=== PATIENT | male | born 1975 | race Caucasian/White ===

== ENCOUNTER 2019-09-01 07:14 | Day surgery (SDC) | payer OTHER ==
[2019-08-28 15:22] VITALS: BMI 25.8
[2019-09-01] MEDS ORDERED: MIDAZOLAM HCL 2 MG/2 ML SINGLE DOSE VIAL ONE (09:00)
[2019-09-01] MEDS ORDERED: PROPOFOL 20 ML ONE ×2 (09:00)
--- NOTE | 2019-09-01 10:03 | OP ---
Operative Note - Note: Operative Date: 09/01/19 Pre-Operative Diagnosis: Right renal stone Operation: Right ESWL Findings: 3 mm x 2 Right mid pole renal stones Post-Operative Diagnosis: Same as Pre-op Surgeon: Placido Harvey Anesthesia: Fractional Estimated Blood Loss (mls): 0 Operative Report Dictated: Yes
[2019-09-01] MEDS ORDERED: ACETAMINOPHEN 325 MG TABLET (FP) ONE (10:51)
[2019-09-01] MEDS ORDERED: ONDANSETRON 4 MG/2 ML VIAL IVPUSH PRN (11:29)
[2019-09-01] MEDS ORDERED: oxyCODONE HCL 5 MG TABLET PO PRN (11:29)
[2019-09-01] MEDS ORDERED: LACTATED RINGERS SOLUTION 1,000 ML IV SCH (11:30)
[2019-09-01 11:31] VITALS: TEMP 97.4
[2019-09-01] MEDS ORDERED: oxyCODONE HCL 5 MG TABLET ONE (11:49)
[2019-09-01] MEDS ORDERED: oxyCODONE HCL 5 MG TABLET PO ONE (11:50)
[2019-09-01 13:55] VITALS: BP 131/68; PULSE 69
--- NOTE | 2019-09-02 11:32 | OP ---
DATE OF OPERATION: 09/01/2019 PREOPERATIVE DIAGNOSIS: Right renal stone. POSTOPERATIVE DIAGNOSIS: Right renal stone. PROCEDURE: Right extracorporeal shock-wave lithotripsy. ATTENDING: Sushant Bravo MD ANESTHESIA: Fractional. DESCRIPTION OF PROCEDURE: The patient was brought in the operating room. Placed in a supine position on the operating room table. Ultrasonography and fluoroscopy were performed. Two 3-mm stones were noted in the right mid pole kidney. Anesthesia and perioperative antibiotics were administered. Shock-wave lithotripsy was then performed on both stones with excellent fragmentation noted under real time ultrasonography and fluoroscopy. No complications were noted. The patient tolerated the procedure very well. SUSHANT BRAVO M.D. /[id number]
== END 2019-09-01 13:00 | disposition home or self-care (01) ==
LOC: JASU-SURG 07:14
PROVIDERS: ATTEND Urology
PROC: 0TF3XZZ Fragmentation in Right Kidney Pelvis, External Approach (ICD-10-PCS; principal; 2019-09-01 08:45)
DX: N20.0 Calculus of kidney (principal)
CPT/HCPCS: 94760